=== PATIENT | female | born 2000 | race Caucasian/White ===

== ENCOUNTER 2025-09-14 07:48 | Outpatient (RCR) | payer OTHER, SELFPAY | END 2025-09-14 23:59 | disposition home or self-care (01) | LOC: RPT 07:48 | PROVIDERS: ATTENDING PHYSICIAN Obstetrics & Gynecology; FAMILY PHYSICIAN Internal Medicine | DX: N94.10 Unspecified dyspareunia (principal); N81.9 Female genital prolapse, unspecified; N39.46 Mixed incontinence; M62.89 Other specified disorders of muscle; Z73.6 Limitation of activities due to disability; N81.10 Cystocele, unspecified | CPT/HCPCS: 97110; 97112; 97140; 97163; 97530 ==

== ENCOUNTER 2025-11-09 07:22 | Outpatient (RCR) | payer OTHER, SELFPAY | END 2025-11-23 23:59 | disposition home or self-care (01) | LOC: RPT 07:22 | PROVIDERS: ATTENDING PHYSICIAN Obstetrics & Gynecology; FAMILY PHYSICIAN Internal Medicine | DX: N94.10 Unspecified dyspareunia (principal); N81.9 Female genital prolapse, unspecified; N39.46 Mixed incontinence; M62.89 Other specified disorders of muscle; Z73.6 Limitation of activities due to disability; N81.10 Cystocele, unspecified | CPT/HCPCS: 97014; 97110; 97140; 97530 ==